=== PATIENT | male | born 1945 | race Caucasian/White ===

== ENCOUNTER 2016-12-14 08:17 | Outpatient (CLI) | payer MEDICARE, BC ==
[~2016-12-14] VITALS: Ht 185.4 cm; Wt 139.1 kg
--- NOTE | ~2016-12-14 | HEMODYNAMI ---
PATIENT:ANNIKA LAMAS MEDICAL RECORD: [id number] : 47 LOCATION:[facility] ADMISSION DATE: 12/14/16 Generatedon:12/14/201611:14 Patient name: ANNIKA LAMAS Patient #: [id number] SSN: DO B: 1945 Date of study: 12/14/2016 Page: Of Hemodynamic Procedure Report Patient Data Patient Demographics Procedure consent was obtained First Name: ANNIKA Gender: Male Last Name: CYDNEY : 1945 Patient #: [id number] Age: 71 year(s) Race: Unknown Additional ID: [id number] Contact details Address: [address] [place] [address] [place] State: [place] City: [facility] [place] Zip code: [address] Past Medical History Performed procedures and imaging results Date Procedure Procedure Results Comments 12/05/2016 Stress testing Positive->Intermediate Fixed with SPECT MPI risk Anterior Allergies: No known allergies Admission Admission Data Admission Date: 12/14/2016 Admission Time: 8:17 Insurance Payor: Private health insurance, Medicare Height (in.): 72 BSA: 2.55 (m2) Height (cm.): 182.88 BMI: 41.5 (kg/m2) Weight (lbs.): 306 Weight (kg.): 138.8 Lab Results Lab Result Date: 12/14/2016 Lab Result Time: 9:30 Biochemistry Name Units Result Min Max BUN mg/dl 15 --(--*-)-- 7 18 Creatinine mg/dl 0.9 --(-*--)-- 0.6 1.3 CBC Name Units Result Min Max Hematocrit % 39.6 -*(----)-- 42 54 Hemoglobin g/dl 12.9 -*(----)-- 13.5 17.5 Procedure Procedure Types Cath Procedure Diagnostic Procedure LHC LH w/Coronaries PCI Procedure Coronary Stent Initial x2 Miscellaneous Procedures Moderate Sedation up to 30 minutes Procedure Description Procedure Date Procedure Date: 12/14/2016 Procedure Start Time: 10:38 Procedure End Time: 11:03 Procedure Staff Name Function Christy Vasquez RT Scrub Antonino Reis MD Performing Physician Jimena Vaughn RN Nurse Refugio Conley RT Monitor Procedure Data Cath Procedure Fluoroscopy Diagnostic fluoroscopy Total fluoroscopy Time: 8.7 time: 8.7 min min Diagnostic fluoroscopy Total fluoroscopy dose: dose: 1507 mGy 1507 mGy Contrast Material Contrast Material Type Amount (ml) Isovue 300 134 Entry Location Entry Primary Successful Side Size Upsize Upsize Entry Closure Sullivan ccessful Closure Location (Fr) 1 (Fr) 2 (Fr) Remarks Device Remarks Radial Right 6 Fr Mechanical artery Short Compression Femoral Right 6 Fr Exoseal artery Short Estimated blood loss: 10 ml Diagnostic catheters Device Type Used For End Catheter Placement Cordis RBL-A catheter (NO Procedure CHARGE) Procedure Complications No complications Procedure Medications Medication Administration Route Dosage Oxygen NC 2 l/min Heparin Flush Bag added to field 2 bags (1000units/500ml NS) Lidocaine 2% added to field 20 Radial Cocktail added to field 1 syringe (Verapomil 2mg/Nitro 400mcg/Heparin 1500units) Versed I.V. 1 mg Fentanyl I.V. 50 mcg Versed I.V. 1 mg Fentanyl I.V. 50 mcg Radial Cocktail I.A. 1 syringe (Verapomil 2mg/Nitro 400mcg/Heparin 1500units) Versed I.V. 1 mg Fentanyl I.V. 50 mcg Versed I.V. 1 mg Fentanyl I.V. 50 mcg Versed I.V. 1 mg Fentanyl I.V. 50 mcg Heparin Bolus I.V. 4000 units Integrilin (Bolus I.V. 11.3 ml 2mg/ml) Plavix P.O. 600 mg Hemodynamics Rest BSA: 2.55 (m2) HGB: 12.9 (g/dl) O2 Consumption: Estimated: 290.02 (ml/min) O2 Co nsumption indexed: Estimated:113.73 (ml/min/m) Heart Rate: 65 (bpm) Snapshots Pre Cath Intra NCS Post Cath Vital Signs Time Heart Resp SPO2 etCO2 [id number] NIBP (mmHg) Rhythm Pain Sedation Rate (ipm) (%) (mmHg) (mmHg) Status Level (bpm) 10:19:07 66 19 99 0 0 146/76(129) NSR 0 (11) 10(A) , No pain 10:23:23 69 20 100 0 0 146/85(119) NSR 0 (11) 10(A) , No pain 10:27:39 66 18 100 0 0 137/78(114) NSR 0 (11) 10(A) , No pain 10:31:55 66 16 96 0 0 127/76(107) NSR 0 (11) 10(A) , No pain 10:36:07 69 16 96 0 0 143/78(109) NSR 0 (11) 10(A) , No pain 10:40:19 81 24 96 0 0 121/71(112) NSR 0 (11) 10(A) , No pain 10:44:23 77 25 96 0 0 121/79(104) NSR 0 (11) 10(A) , No pain 10:48:31 78 15 96 0 0 129/68(102) NSR 0 (11) 9(A) , No pain 10:52:41 74 15 96 0 0 131/72(95) NSR 0 (11) 9(A) , No pain 10:56:57 77 18 96 0 0 129/70(97) NSR 0 (11) 9(A) , No pain 11:00:58 80 22 98 0 0 123/70(85) NSR 0 (11) 10(A) , No pain Medications Time Medication Route Dose Verified Delivered Reason Note s Effectiveness by by 10:18:10 Oxygen NC 2 l/min Antonino Jimena Per physician Smiley Vaughn RN 10:18:18 Heparin Flush added 2 bags Antonino Muñiz used for Bag to Smiley Reis MD procedure (1000units/500ml field NS) 10:18:26 Lidocaine 2% added 20ml Antonino Muñiz used for to vial Smiley Reis MD procedure field 10:18:32 Radial Cocktail added 1 Antonino Muñiz used for (Verapomil to syringe Smiley Reis MD procedure 2mg/Nitro field 400mcg/Hepari 10:35:22 Versed I.V. 1 mg Antonino Jimena for sedation Smiley Vaughn RN 10:35:28 Fentanyl I.V. 50 mcg Antonino Jimena for sedation Smiley Vaughn RN 10:37:13 Versed I.V. 1 mg Antonino Jimena for sedation Smiley Vaughn RN 10:37:15 Fentanyl I.V. 50 mcg Antonino Jimena for sedation Smiley Vaughn RN 10:39:17 Radial Cocktail I.A. 1 Antonino Antonino for (Verapomil syringe Smiley Reis MD vasodilation 2mg/Nitro 400mcg/Hepari 10:39:26 Versed I.V. 1 mg Antonino Jimena for sedation Smiley Vaughn RN 10:39:31 Fentanyl I.V. 50 mcg Antonino Jimena for sedation Smiley Vaughn RN 10:41:10 Versed I.V. 1 mg Antonino Jimena for sedation Smiley Vaughn RN 10:41:18 Fentanyl I.V. 50 mcg Antonino Jimena for sedation Smiley Vaughn RN 10:43:21 Versed I.V. 1 mg Antonino Jimena for sedation Smiley Vaughn RN 10:43:27 Fentanyl I.V. 50 mcg Antonino Jimena for sedation Smiley Vaughn RN 10:48:03 Heparin Bolus I.V. 4000 Antonino Jimena for dose units Smiley Vaughn RN anticoagulation verified with dr reis 10:51:49 Integrilin I.V. 11.3 ml nAtonino Jimena for wast ed (Bolus 2mg/ml) Smiley Vaughn RN antiplatelet 8.7 mL therapy 11:00:10 Plavix P.O. 600 mg Antonino Jimena for Smiley Vaughn RN antiplatelet therapy Procedure Log Time Note 10:09:30 Diagnostic Cath Status : Elective 10:09:51 Refugio Conley RT(R) sent for patient. Start room use. 10:09:52 Time tracking: Regular hours 10:09:56 Plan of Care:Hemodynamics will remain stable., Cardiac rhythm will remain stable., Comfort level will be maintained., Respiratory function will remain adequate., Patient/ family verbilizes understanding of procedure., Procedure tolerated without complication., Recovers from procedure without complications.. 10:17:57 Vital chart was started 10:18:10 Oxygen 2 l/min NC was administered by Jimena Vaughn RN; Per physician; 10:18:18 Heparin Flush Bag (1000units/500ml NS) 2 bags added to field was administered by Antonino Reis MD; used for procedure; 10:18:26 Lidocaine 2% 20ml vial added to field was administered by Antonino Reis MD; used for procedure; 10:18:32 Radial Cocktail (Verapomil 2mg/Nitro 400mcg/Heparin 1500units) 1 syringe added to field was administered by Antonino Reis MD; used for procedure; 10:27:27 Patient received from Pre/Post Procedure Room to CCL 1 Alert and oriented. Tansferred to table in Supine position. 10:27:28 Correct patient and procedure confirmed by team. 10:27:28 Warm blankets applied, and nicolasa hugger turned on for patient comfort. 10:27:30 Signed procedure consent form obtained from patient. 10:27:31 ECG and BP/O2 sat monitors applied to patient. 10:27:32 Baseline sample Acquired. 10:27:36 Rhythm: sinus rhythm 10:27:48 H&P Date Dictated: 11/22/2016 Within 30 days and on chart., H&P Addendum completed by physician on day of procedure. (MUST COMPLETE FOR ALL OUTPATIENTS). 10:28:47 Pre-procedure instructions explained to patient. 10:28:48 Pre-op teaching completed and patient verbalized understanding. 10:28:50 Family in waiting room. 10:29:31 Patient allergic to No known allergies 10:29:33 Is the patient allergic to Iodine/contrast media? No. 10:29:35 Is patient on blood thinner?No 10:29:38 Patient diabetic? Yes. 10:29:41 If diabetic: On Metformin? Yes 10:29:46 If on Metformin: Last Dose? 12/11/2016 10:29:50 Snore? Yes 10:29:50 Previous problem with sedation/anesthesia? No ? 10:29:51 Sleep apnea? No 10:29:52 Deviated septum? No 10:29:53 Opens mouth fully? Yes 10:29:54 Sticks out tongue? Yes 10:29:55 Airway obstruction? No ? 10:29:57 Dentures? No ? 10:29:59 Modified Albert's test Ulnar < 7 seconds 10:30:01 Patient pain scale 0/10 ?. 10:30:11 IV patent on arrival in left hand with 0.9% NaCl at KVO. 10:31:20 Lab Result : Hemoglobin 12.9 g/dl 10:31:20 Lab Result : Hematocrit 39.6 % 10:31:20 Lab Result : BUN 15 mg/dl 10:: Lab Result : Creatinine 0.9 mg/dl 10:31:23 Lab results completed and on chart. 10:31:25 Right Radial & Right Groin area was prepped with chlora-prep and draped in sterile fashion 10:: Sharps counted by scrub and verified by R.N. 10:: Alarms reviewed by R. N. 10:31:30 Use device set Radial Dx 10:31:31 MBrace Wrist Support opened to sterile field. 10:31:32 Tegaderm 4 x 4 opened to sterile field. 10:31:33 Acist Hand Control opened to sterile field. 10:31:33 Acist Manifold opened to sterile field. 10:31:34 Medline Cath Pack opened to sterile field. 10:31:34 Acist Syringe opened to sterile field. 10:31:35 Terumo 6Fr Slender Glidesheath opened to sterile field. 10:31:35 Bag Decanter opened to sterile field. 10:31:36 St Grant 260cm J .035 wire opened to sterile field. 10:31:48 Patient Height : 72 cm 10:31:54 Patient Weight : 306 kg 10:31:54 Insurance Payor : Private health insurance, Medicare 10:34:39 Zero performed for pressure channel P1 10:35:01 Physician arrived 10:35:02 Final Timeout: patient, procedure, and site verified with staff and physician. All members of the team are in agreement. 10:35:02 --------ALL STOP TIME OUT------ 10:35:07 Right Radial & Right Groin site verified by team. 10:35:22 Versed 1 mg I.V. was administered by Jimena Vaughn RN; for sedation; 10:35:28 Fentanyl 50 mcg I.V. was administered by Jimena Vaughn RN; for sedation; 10:35:52 Physical assessment completed. ASA score P 2 - A patient with mild systemic disease as per Antonino Reis MD. 10:35:55 Sedation plan: IV Moderate Sedation Versed, Fentanyl 10:37:13 Versed 1 mg I.V. was administered by Jimena Vaughn RN; for sedation; 10:37:15 Fentanyl 50 mcg I.V. was administered by Jimena Vaughn RN; for sedation; 10:38:07 Full Disclosure recording started 10:38:07 Procedure started. 10:38:13 Local anesthetic to right radial artery with Lidocaine 2% by Antonino Reis MD.INITIAL ACCESS ONLY 10:38:40 A 6 Fr Short sheath was inserted into the Right Radial artery 10:39:05 A Polyplex RBL-A catheter (NO CHARGE) was advanced over the wire and used for Procedure. 10:39:17 Radial Cocktail (Verapomil 2mg/Nitro 400mcg/Heparin 1500units) 1 syringe I.A. was administered by Antonino Reis MD; for vasodilation; 10:39:26 Versed 1 mg I.V. was administered by Jimena Vaughn RN; for sedation; 10:39:31 Fentanyl 50 mcg I.V. was administered by Jimena Vaughn RN; for sedation; 10:40:44 LV gram done using ZAPIEN 10:40:46 Injector settings: Ml/sec: 5, Volume: 15, 10:40:57 EF : 60 % 10:41:10 Versed 1 mg I.V. was administered by Jimena Vaughn RN; for sedation; 10:41:13 Catheter exchanged over wire. 10:41:18 Fentanyl 50 mcg I.V. was administered by Jimena Vaughn RN; for sedation; 10:43:12 Medtronic Launcher 6Fr AR 2.0 guide catheter opened to sterile field. 10:43:13 Medtronic Launcher 6Fr EBU 3.5 guide catheter opened to sterile field. 10:43:21 Versed 1 mg I.V. was administered by Jimena Vaughn RN; for sedation; 10:43:22 Terumo 6Fr [place] Sheath opened to sterile field. 10:43:27 Fentanyl 50 mcg I.V. was administered by Jimena Vaughn RN; for sedation; 10:44:00 unable to cannulate vessles through radial approach, moving to femoral. 10:44:07 Local anesthetic to right femoral artery with Lidocaine 2% by Antonino Reis MD.ADDITIONAL ACCESS 10:44:39 A 6 Fr Short sheath was inserted into the Right Femoral artery 10:45:38 6 Fr ebu 3.5 guide catheter was inserted over the wire 10:46:12 LCA angiography performed. 10:46:51 Fletcher Whisper J 300cm 0.014 guide wire opened to sterile field. 10:46:51 Trina BasixCompak Inflation Kit opened to sterile field. 10:48:03 Heparin Bolus 4000 units I.V. was administered by Jimena Vaughn RN; for anticoagulation; dose verified with dr reis 10:49:08 whisper wire advanced. 10:49:36 Wire advanced across lesion. 10:49:38 Inflation Number: 1 A Medtronic Resolute 3.5 X 18 stent was prepped and advanced across the Mid LAD. The stent was deployed at 21 DEISY for 0:10 (min:sec). 10:49:44 Stent catheter was removed intact over wire. 10:49:50 Wire removed. 10:50:14 Guide catheter removed. 10:50:24 6 Fr AR 2 guide catheter was inserted over the wire 10:51:04 RCA angiography performed. 10:51:49 Integrilin (Bolus 2mg/ml) 11.3 ml I.V. was administered by Jimena Vaughn RN; for antiplatelet therapy; wasted 8.7 mL 10:53:23 whisper wire advanced. 10:54:28 Wire advanced across lesion. 10:54:50 Inflation Number: 1 A Medtronic Resolute 3.5 X 18 stent was prepped and advanced across the Mid RCA. The stent was deployed at 13 DEISY for 0:10 (min:sec). 10:55:11 Inflation number: 2 The stent balloon was then re-inflated across the Mid RCA to 19 DEISY for 0:10 (min:sec). 10:55:42 Stent catheter was removed intact over wire. 10:57:25 Inflation Number: 1 A Medtronic Resolute 3.5 X 15 stent was prepped and advanced across the Prox RCA. The stent was deployed at 17 DEISY for 0:10 (min:sec). 10:58:37 Stent catheter was removed intact over wire. 10:58:38 Guide catheter removed. 10:58:38 Wire removed. 10:58:52 Cordis 6Fr Exoseal opened to sterile field. 10:59:04 Sheath removed intact; hemostasis achieved with Exoseal to the Right Femoral artery. 10:59:05 Procedure ended.(Physican Out) 11:00:10 Plavix 600 mg P.O. was administered by Jimena Vaughn RN; for antiplatelet therapy; 11:00:35 Terumo TR Band Large opened to sterile field. 11:00:45 Sheath removed intact; hemostasis achieved with Mechanical Compression to the Right Radial artery. 11:00:50 Fluoroscopy time 08.70 minutes. 11:00:54 Fluoroscopy dose: 1507 mGy 11:00:54 Flurop Dose total: 1507 11:01:00 Contrast amount:Isovue 300 134ml. 11:01:01 Sharps counted by scrub and verified by R.N. 11:01:05 TR band inflated with 12cc of air. 11:01:06 Insertion/operative site no bleeding no hematoma. 11:01:08 Post-op/insertion site Right Femoral artery dressed using a 4 x 4 and Tegaderm. 11:01:12 Post right femoral artery:stable, soft, clean and dry 11:01:14 Post Procedure Pulses reassessed and unchanged 11:01:16 Post-procedure physical assessment completed. ASA score P 2 - A patient with mild systemic disease as per Antonino Reis MD. 11:01:19 Post procedure rhythm: unchanged. 11:01:22 Estimated blood loss: 10 ml 11:01:24 Patient needs reinforcement of post procedure teaching. 11:01:24 Post procedure instruction explained to patient.Patient verbalizes understanding. 11:02:06 Procedure type changed to Cath procedure, Diagnostic procedure, LHC, LHC w/Coronaries, PCI procedure, Coronary Stent Initial x2, Miscellaneous Procedures, Moderate Sedation up to 30 minutes 11::41 Procedure and supply charges have been captured, reviewed, submitted and are correct. 11::45 Procedure Complication : No complications 11:03:26 See physician's report for complete and final results. 11:03:26 Vital chart was stopped 11::28 Report given to Pre/Post Procedure Room. 11:03:30 Patient transfered to Pre/Post Procedure Room with Stretcher. 11::32 Full Disclosure recording stopped ::32 Procedure ended. 11:03:41 ACC-PCI Only Patient was given prescriptions, or instructed by Antonino Reis MD to start/continue the following medications upon discharge: Plavix 11::43 End room use (Document Last) 11:09:59 St Grant Femstop Arch Gold opened to sterile field. 11:14:06 Femstop placed over the right femoral artery at 160 mmHg. Hemostasis achieved. Intervention Summary Intervention Notes Time ActionType Lesion and Equipment Action# Pressure Duration Attributes Used 10:49:38 Place stent Mid LAD Medtronic 1 21 00:10 Resolute 3.5 X 18 stent 10:54:50 Place stent Mid RCA Medtronic 1 13 00:10 Resolute 3.5 X 18 stent 10:55:11 Reinflate Mid RCA Medtronic 2 19 00:10 stent Resolute balloon 3.5 X 18 stent 10:57:25 Place stent Prox RCA Medtronic 1 17 00:10 Resolute 3.5 X 15 stent Device Usage Item Name Manufacture Quantity Catalog Hospital Part Current Minimal Lot# / Number Charge Number Stock Stock Serial# Code [facility] Advanced 1 140-0250-00 264498 96107 817784 5 Wrist Vascular Support Dynamics Tegaderm 4 3M 1 [id number] 140127 885105 051517 5 x 4 Acist Acist 1 24557 852901 041867 042720 5 Manifold Medical Systems Inc Acist Hand Acist 1 61884 457419 147171 040461 5 Control Medical Systems Inc Acist Acist 1 41723 467720 371299 715305 20 Syringe Medical Systems Inc Medline Cardinal 1 [id number] 914906 21581 063117 5 Cath Pack Health Bag Microtek 1 2002S 228303 53243 258271 5 DecFanChatter Medical Inc. Terumo 6Fr Terumo 1 [id number] 594798 456423 756423 [address] St Grant 1 428653 995398 262287 972907 30 260cm J .035 wire Cordis Cardinal 1 [id number] 954671 434931 5 RBL-A Health catheter (NO CHARGE) Medtronic Medtronic 1 [id number] 255425 95658 162042 1 Launcher 6Fr AR 2.0 guide catheter Medtronic Medtronic 1 [id number] 216025 25363 388070 3 Launcher 6Fr EBU 3.5 guide catheter Terumo 6Fr Terumo 1 [id number] 106161 255533 361768 40 [place] Sheath Merit Merit 1 [id number] 094380 470617 550674 15 BasixCompak Medical Inflation Kit Fletcher Fletcher 1 [id number] 347616 499898 251898 5 Whisper J Vascular 300cm 0.014 guide wire Medtronic Medtronic 2 [id number] 279108 289050 1 [id number] Resolute [id number] 3.5 X 18 stent Medtronic Medtronic 1 [id number] 396122 942656 5 [id number] Resolute 3.5 X 15 stent Cordis 6Fr Cardinal 1 [id number] 510666 119875 476533 10 HighlightCam Shoutfitumo 1 [id number] 353420 315769 887[address] Grant 1 [id number] 649437 027238 680458 5 Femstop Arch Gold Signature Audit [place] Stage Time Signature Unsigned Intra-Procedure 12/14/2016 Rfeugio Conley 11:14:19 AM RT(R) Signatures Monitor : Refugio Conley RT Signature : Date : Time : [facility] [address] [address]
[2016-12-14] MEDS ORDERED: FLOMAX0.4 MG PO (08:53)
[2016-12-14] MEDS ORDERED: OMEPRAZOLE40 MG PO (08:54)
[2016-12-14] MEDS ORDERED: GLUCOPHAGE1000 MG PO (08:54)
[2016-12-14] MEDS ORDERED: LOTREL 10/20 CA1 CAP PO (08:54)
[2016-12-14] MEDS ORDERED: PROSCAR5 MG PO (08:55)
[2016-12-14] MEDS ORDERED: ZOCOR40 MG PO (08:55)
[2016-12-14] MEDS ORDERED: GLYBURIDE5 M1 PO (08:56)
[2016-12-14] MEDS ORDERED: RESTORIL15 MG PO (08:56)
[2016-12-14 09:04] VITALS: BP 140/79; Ht 185.4 cm; Wt 139.1 kg
[2016-12-14 09:44] LABS: BASOPHILS 0.2 % (0.0-2.0); EOSINOPHILS 3.4 % (0-7); HEMATOCRIT 39.6 % (42.0-54.0); HEMOGLOBIN 12.9 g/dL (13.5-17.5); IMMATURE GRANULOCYTES 0.4 % (0-5); LYMPHOCYTES 22.6 % (15-50); MCH 27.7 pg (26.0-34.0); MCHC 32.6 g/dL (31.0-37.0); MEAN PLATELET VOLUME 8.8 fL (7.4-10.4); MONOCYTES 6.7 % (2-11); NEUTROPHILS 66.7 % (40-80); PLATELET COUNT 178 10x3/uL (130-400); RBC 4.66 10x6/uL (4.20-6.10); RDW 13.7 % (11.5-14.5); WBC 8.5 10x3/uL (4.8-10.8)
[2016-12-14 10:03] LABS: CALC OSMOLALITY 284 mosm/kg (275-300); CALCIUM 8.5 mg/dL (8.5-10.1); CARBON DIOXIDE 25.6 mmol/L (21.0-32.0); CHLORIDE - SERUM 105 mmol/L (98-107); CREATININE - SERUM 0.9 mg/dL (0.6-1.3); GLUCOSE 187 mg/dL (74-106); POTASSIUM - SERUM 4.1 mmol/L (3.5-5.1); SODIUM 140 mmol/L (136-145); UREA NITROGEN 15 mg/dL (7-18); eGFR NON AFRICAN AMERICAN 89 mL/min (90-120)
--- NOTE | 2016-12-14 11:30 | NUR ---
VSS WITH CHEST PAIN DENIED.TR BAND TO R/WRIST CDI 6 FR EXOSEAL R/GROIN CDI NO BLEEDING NO HEMATOMA NOTED. INSTRUCTED PATIENT TO KEEP HEAD FLAT ON PILLOW WITH RLE STRAIGHT 1200 NO DISTRESS NOTED VSS WITH NO DISTRESS NOTED 6 FR EXOSEAL R/GROIN CDI NO BLEEDING NO HEMATOMA NOTED.
[2016-12-14] MEDS ORDERED: PLAVIX75 MG PO (11:47)
--- NOTE | 2016-12-14 12:30 | NUR ---
1230 PATIENT RESTING QUIETLY WITH EYES CLOSED NO DISTRESS. TR BAND TO R/WRIST CDI 6 FR EXOSEAL R/GROIN CDI NO BLEEDING NO HEMATOMA NOTED. INSTRUCTED PATIENT TO KEEP HEAD FLAT ON PILLOW WITH RLE STRAIGTH 1300 SANDWICH AND SODA TO BEDSIDE WITH ASSISTING NO DISTRESS 1330 4 CC AIR REMOVED FROM TR BAND WITH NO BLEEDING NOTED
--- NOTE | 2016-12-20 14:38 | OP ---
PATIENT NAME: ANNIKA LAMAS MEDICAL RECORD: [id number] :47 LOCATION:D.[facility] ADMISSION DATE: SURGEON: BHUMI NICOLAS MD DATE OF OPERATION: 12/14/2016 PROCEDURES: 1. PTCA stent, LAD. 2. PTCA stent, RCA. 3. Left heart catheterization. 4. Selective coronary angiography. 5. Left ventriculogram. INDICATIONS: Angina and coronary artery disease. PROCEDURE IN DETAIL: After informed consent was obtained and after detailed explanation of risks, benefits as well as alternative therapies, the patient elected to proceed with angiogram and angioplasty. The right femoral area was prepped and draped in normal sterile fashion. The right femoral artery was cannulated via modified Seldinger technique with placement of 6-Albanian sheath. All catheters exchanged through this sheath. FINDINGS: Left ventriculogram was performed in standard 30-degree ZAPIEN view, reveals good cardiac wall motion throughout all segments. Overall ejection fraction is 60%. SELECTIVE CORONARY ANGIOGRAPHY: 1. Left main is with no significant angiographic disease. 2. Left anterior descending has a 90% stenosis in the mid vessel. 3. Left circumflex has moderate irregularities, but no flow-limiting stenosis. 4. Right coronary has 75%-80% stenosis times 2 in the mid vessel. PTCA STENT OF THE LAD AND RCA: The LAD was addressed with a 3.5 x 18 mm Resolute. The RCA with a 3.5 x 18 and a 3.5 x 15, both Resolute stents. Result was 0% residual throughout. OVERALL IMPRESSION: Successful percutaneous transluminal coronary angioplasty stent of the left anterior descending and right coronary artery going from 90% and 80% initial stenosis to 0% residual stenosis. TRANSINT:[id number] Voice Confirmation ID: [id number] DOCUMENT ID: [id number] BHUMI NICOLAS MD at 1438 CC: [id number] DICTATION DATE: 12/14/16 1102 REWEAVER: 12/14/16 1119 DEP CLI 12/14/16 [place] [id number]
== END 2016-12-14 14:30 | disposition home or self-care (01) ==
LOC: D.CATH 08:17
PROVIDERS: Internal Medicine Interventional Cardiology
DX: I25.119 Atherosclerotic heart disease of native coronary artery with unspecified angina pectoris (principal)
CPT/HCPCS: 93458; C9600 ×2

== ENCOUNTER 2018-06-17 10:12 | Emergency (ER) | payer MEDICARE, BC ==
[~2018-06-17] VITALS: Ht 185.4 cm; Wt 136.4 kg
[~2018-06-17 10:12] MED LIST: FLOMAX0.4 MG PO; GLUCOPHAGE1000 MG PO; GLYBURIDE5 M1 PO; LOTREL 10/20 CA1 CAP PO; OMEPRAZOLE40 MG PO; PLAVIX75 MG PO; PROSCAR5 MG PO; RESTORIL15 MG PO; ZOCOR40 MG PO
[2018-06-17 10:18] VITALS: Ht 185.4 cm; Wt 136.4 kg
[2018-06-17] MEDS ORDERED: TRAZODONE HCL100 MG PO (10:21)
[2018-06-17] MEDS ORDERED: FENOPROFEN CAL600 MG PO (10:21)
[2018-06-17 10:52] LABS: APPEARANCE CLEAR (CLEAR); COLOR YELLOW (YELLOW); NITRITE NEGATIVE (NEGATIVE)
[2018-06-17 10:53] LABS: BILIRUBIN NEGATIVE (NEGATIVE); GLUCOSE 50 mg/dL (NEGATIVE); KETONE NEGATIVE (NEGATIVE); PROTEIN NEGATIVE (NEGATIVE); UROBILINOGEN NORMAL (NORMAL)
[2018-06-17] MEDS ORDERED: TORADOL10 MG PO (11:31)
[2018-06-17 12:27] VITALS: BP 154/84
== END 2018-06-17 12:27 | disposition home or self-care (01) ==
LOC: D.ER 10:12
PROVIDERS: Emergency Medicine
DX: M54.16 Radiculopathy, lumbar region (principal); E11.9 Type 2 diabetes mellitus without complications; I10 Essential (primary) hypertension

== ENCOUNTER → 2018-12-24 08:42 | Outpatient (CLI) | payer MEDICARE, BC ==
[2018-06-17 10:18] VITALS: BMI 39.6
[~2018-12-24 08:42] MED LIST changes: +FENOPROFEN CAL600 MG PO; +TORADOL10 MG PO; +TRAZODONE HCL100 MG PO
== END | disposition home or self-care (01) ==
LOC: D.RAD 08:42
PROVIDERS: ATTEND Family Medicine
DX: R13.10 Dysphagia, unspecified (principal)

== ENCOUNTER 2019-10-15 06:08 | Emergency (ER) | payer MEDICARE, BC ==
[~2019-10-15] VITALS: Ht 185.4 cm; Wt 135.9 kg
[2019-10-15 06:23] VITALS: Ht 185.4 cm; Wt 135.9 kg
[2019-10-15 06:45] LABS: BASOPHILS 0.3 % (0-2); EOSINOPHILS 4.1 % (0-7); HEMATOCRIT 39.8 % (42.0-54.0); IMMATURE GRANULOCYTES 0.3 % (0-5); LYMPHOCYTES 17.2 % (15-50); MCH 28.4 pg (26.0-34.0); MCHC 32.7 g/dL (31.0-37.0); MCV 87.1 fL (80.0-100.0); MEAN PLATELET VOLUME 8.6 fL (7.4-10.4); MONOCYTES 6.1 % (2-11); PLATELET COUNT 192 10x3/uL (130-400); RBC 4.57 10x6/uL (4.20-6.10); RDW 13.2 % (11.5-14.5); WBC 11.7 10x3/uL (4.8-10.8)
[2019-10-15 06:59] LABS: ANION GAP 12.3 mmol/L (8-16); CALCIUM 8.7 mg/dL (8.5-10.1); CARBON DIOXIDE 29.6 mmol/L (21.0-32.0); CREATININE - SERUM 1.1 mg/dL (0.6-1.3); POTASSIUM - SERUM 3.9 mmol/L (3.5-5.1)
[2019-10-15 07:07] LABS: ALBUMIN 3.6 g/dL (3.4-5.0); BILIRUBIN - TOTAL 0.5 mg/dL (0.2-1.3); PROTEIN - SERUM 7.1 g/dL (6.4-8.2)
[2019-10-15] MEDS ORDERED: ULTRAM50 MG PO (07:42)
[2019-10-15] MEDS ORDERED: PERCOCET 5-3251 TAB PO (07:48)
[2019-10-15 08:21] VITALS: BP 156/71
== END 2019-10-15 08:22 | disposition home or self-care (01) ==
LOC: D.ER 06:08
PROVIDERS: Emergency Medicine
DX: E11.8 Type 2 diabetes mellitus with unspecified complications (principal); Z79.84 Long term (current) use of oral hypoglycemic drugs; N20.1 Calculus of ureter; I10 Essential (primary) hypertension; Z95.5 Presence of coronary angioplasty implant and graft

== ENCOUNTER 2019-10-18 18:37 | Observation (INO) | payer MEDICARE, BC ==
[~2019-10-18] VITALS: Ht 185.4 cm; Wt 130.9 kg
[~2019-10-18 18:37] MED LIST changes: +PERCOCET 5-3251 TAB PO; +ULTRAM50 MG PO
[2019-10-18 19:03] LABS: BASOPHILS 0.2 % (0-2); EOSINOPHILS 0.7 % (0-7); HEMATOCRIT 36.4 % (42.0-54.0); HEMOGLOBIN 12.2 g/dL (13.5-17.5); IMMATURE GRANULOCYTES 0.4 % (0-5); LYMPHOCYTES 10.9 % (15-50); MCHC 33.5 g/dL (31.0-37.0); MCV 86.7 fL (80.0-100.0); MEAN PLATELET VOLUME 8.5 fL (7.4-10.4); NEUTROPHILS 78.8 % (40-80); PLATELET COUNT 183 10x3/uL (130-400); RDW 13.2 % (11.5-14.5); WBC 13.3 10x3/uL (4.8-10.8)
--- NOTE | 2019-10-18 19:10 | NUR ---
REPORT GIVEN TO IVY REBOLLEDO IN SBAR FORMAT UTILIZING THE HANDOFF COMMUNICATION TOOL.
[2019-10-18 19:20] LABS: ANION GAP 14.8 mmol/L (8-16); CALCIUM 8.3 mg/dL (8.5-10.1); CARBON DIOXIDE 27.2 mmol/L (21.0-32.0); CREATININE - SERUM 1.6 mg/dL (0.6-1.3)
[2019-10-18 19:27] LABS: ALBUMIN 3.2 g/dL (3.4-5.0); BILIRUBIN - TOTAL 0.41 mg/dL (0.2-1.3); PROTEIN - SERUM 7.2 g/dL (6.4-8.2)
[2019-10-18 21:26] LABS: APPEARANCE CLEAR (CLEAR); BILIRUBIN NEGATIVE (NEGATIVE); COLOR YELLOW (YELLOW); GLUCOSE NEGATIVE (NEGATIVE); KETONE SMALL mg/dL (NEGATIVE); NITRITE NEGATIVE (NEGATIVE); PROTEIN TRACE mg/dL (NEGATIVE); UROBILINOGEN NORMAL (NORMAL)
[2019-10-18 21:27] LABS: BACTERIA FEW /hpf (NEGATIVE); WHITE CELLS - URINE 0-5 /hpf (NEGATIVE)
[2019-10-18 22:09] VITALS: BP 159/72; Ht 185.4 cm; Wt 130.9 kg
[2019-10-19 04:00] VITALS: BP 159/72
[2019-10-19 05:35] LABS: BASOPHILS 0.3 % (0-2); EOSINOPHILS 2.2 % (0-7); HEMATOCRIT 33.3 % (42.0-54.0); IMMATURE GRANULOCYTES 0.2 % (0-5); LYMPHOCYTES 17.9 % (15-50); MCH 28.6 pg (26.0-34.0); MCV 86.5 fL (80.0-100.0); MEAN PLATELET VOLUME 8.6 fL (7.4-10.4); MONOCYTES 8.4 % (2-11); PLATELET COUNT 176 10x3/uL (130-400); RBC 3.85 10x6/uL (4.20-6.10); RDW 13.2 % (11.5-14.5)
[2019-10-19 06:14] LABS: % SATURATION 12 % (15-55); IRON 28 ug/dl (35-150); TOTAL IRON BIND CAPACITY 227 ug/dl (260-445); UNSAT IRON BIND CAPACITY 199 ug/dl (150-375)
[2019-10-19 06:43] LABS: ANION GAP 14.2 mmol/L (8-16); CALCIUM 7.7 mg/dL (8.5-10.1); CARBON DIOXIDE 26.5 mmol/L (21.0-32.0); MAGNESIUM - SERUM 1.7 mg/dL (1.8-2.4); PHOSPHOROUS 3.7 mg/dL (2.5-4.9); POTASSIUM - SERUM 3.7 mmol/L (3.5-5.1)
[2019-10-19 06:48] LABS: CREATININE - SERUM 1.1 mg/dL (0.6-1.3)
--- NOTE | 2019-10-19 07:46 | NUR ---
PT RESTING IN BED WITH EYES OPEN, ALERT AND ORIENTED, BREATHING EVEN AND UNLABORED NO S/S OF DISTRESS AT THIS TIME. IV LOCATED TO LEFT WRIST RUNNING NS @ 125. DENIES NEEDS AT THIS TIME, WILL CONTINUE TO MONITOR.
[2019-10-19] MEDS ORDERED: CIPRO500 MG PO (09:16)
[2019-10-19] MEDS ORDERED: PERCOCET 5-3251 TAB PO (09:16)
[2019-10-19 10:05] VITALS: BP 163/76
== END 2019-10-19 11:26 | disposition home or self-care (01) ==
LOC: D.ER 18:37 → D.MS 20:57 → OBSVTIME 20:57 → D.MS 10-19 11:26
PROVIDERS: Family Medicine; ADMIT Family Medicine; ATTEND Family Medicine
DX: N20.1 Calculus of ureter (principal); N17.9 Acute kidney failure, unspecified; D72.829 Elevated white blood cell count, unspecified; D50.9 Iron deficiency anemia, unspecified; E11.9 Type 2 diabetes mellitus without complications

== ENCOUNTER → 2021-01-07 09:00 | Outpatient (CLI) | payer MEDICARE, BC ==
[2019-10-18 22:09] VITALS: BMI 38.0
--- NOTE | ~2021-01-07 | EC ---
PATIENT:ANNIKA LAMAS DATE OF SERVICE: 01/07/21 SEX: M MEDICAL RECORD: [id number] DATE OF : [birth year] LOCATION:[facility] AGE OF PATIENT: 75 ADMISSION DATE: 01/07/21 REFERRING PHYSICIAN: INTERPRETING PHYSICIAN: JOHN BANGURA MD ECHOCARDIOGRAM REPORT ECHO CHARGES 4 ECHO COMPLETE Date: 01/07/21 CLINICAL DIAGNOSIS: HEART MURMUR ECHOCARDIOGRAPHIC MEASUREMENTS (adult normal given) AC root (d.<3.7cm) 3.8 cm LV Septum d (<1.2 cm> 1.3 cm Valve Excursion 1.7 cm LV Septum (systole) 1.5 cm Left Atria (s.<4.0cm> 3.9 cm LVPW d(<1.2cm) 1.3 cm RV (d.<2.3cm) 3.9 cm LVPW (sytole) 1.6 cm LV diastole(<5.6CM) 3.9 cm MV E-F(>70mm/sec) cm LV systole 2.4 cm LVOT Diameter 2.2 cm MV exc.(>10mm) 1.4 cm Est.ejection fraction (50-75%) % DOPPLER: LVIT cm/sec A 75.0 cm/sec E 63.0 cm/sec LA cm/sec RVSP 14 mmHg LVOT 112 cm/sec AOP1/2T m/s Asc. Ao 140 cm/sec RVOT 81 cm/sec RA cm/sec PA 96 cm/sec AV Gradient Peak 7.82 mmHg AV Mean 4.50 mmHg AV Area 2.7 cm MV Gradient Peak 4.25 mmHg MV Mean 1.71 mmHg MV Area cm COMMENTS: Graduation Coach: 2 RAHAT HAMPTON Wire Drawing Setter: 3 Dr. Poole TAPE# PACS Pericardial Effusion N DATE OF SERVICE: Adequate 2D, color-flow imaging, spectral Doppler, and M-Mode FINDINGS: Mild LVH. LV internal dimension is normal. Wall motion is normal. EF is greater than or equal to 55%. Aortic valve is tricuspid. No evidence of stenosis by Doppler interrogation. Left atrium is normal. Mitral valve shows no prolapse. Trace MR. Right-sided chambers are grossly normal. Trace TR. TRANSINT:[id number] Voice Confirmation ID: [id number] DOCUMENT ID: [id number] ECHOCARDIOGRAM REPORT [id number] ANNIKA LAMAS GREGORY A MD CC: [id number] DICTATION DATE: 01/08/21 1251 DAYCARE ASSISTANT: 01/08/21 1549 DEP CLI 01/07/21 [place] [id number] [place] [address]
[~2021-01-07 09:00] MED LIST changes: +CIPRO500 MG PO
== END | disposition home or self-care (01) ==
LOC: D.HCCECHO 09:00
PROVIDERS: ATTEND Internal Medicine Cardiovascular Disease
DX: I25.10 Atherosclerotic heart disease of native coronary artery without angina pectoris (principal); R01.1 Cardiac murmur, unspecified

== ENCOUNTER 2021-01-21 11:19 | Day surgery (SDC) | payer MEDICARE, BC ==
[~2021-01-21] VITALS: Ht 182.9 cm; Wt 136.8 kg
--- NOTE | ~2021-01-21 | HEMODYNAMI ---
PATIENT:ANNIKA LAMAS MEDICAL RECORD: [id number] : 47 LOCATION:[facility] ADMISSION DATE: 01/21/21 Generatedon:113:36 Patient name: ANNIKA LAMAS Patient #: [id number] SSN: DO B: 1945 Date of study: 01/21/2021 Page: Of Hemodynamic Procedure Report Patient Data Patient Demographics Procedure consent was obtained First Name: ANNIKA Gender: Male Last Name: CYDNEY : 1945 Patient #: [id number] Age: 75 year(s) Race: Unknown Additional ID: [id number] Contact details Address: [address] [place] [address] [place] State: [place] City: [facility] Zip code: [address] Past Medical History Allergies: No known allergies Admission Admission Data Admission Date: 01/21/2021 Admission Time: 11:19 Lab Results Lab Result Date: 01/21/2021 Lab Result Time: 0:00 Biochemistry Name Units Result Min Max BUN mg/dl 27 --(----)-* 7 18 Creatinine mg/dl 1.2 --(---*)-- 0.6 1.3 eGFR ml/min 63 *-(----)-- 90 120 NONAFRICAN CBC Name Units Result Min Max Hemoglobin g/dl 12.8 -*(----)-- 13.5 17.5 Procedure Procedure Types Cath Procedure Diagnostic Procedure LHC LHC w/Coronaries FFR/IVUS FFR Initial FFR Additional Sedation Charges Moderate Sedation 10-24 minutes PCI Procedure Coronary Stent Coronary Stent Initial Hemochron ACT Test Procedure Description Procedure Date Procedure Date: 01/21/2021 Procedure Start Time: 13:05 Procedure End Time: 13:33 Procedure Staff Name Function Bruce Goode MD Performing Physician Ashley Handy RT Scrub Ailyn Bray RT Monitor Raza Noel RN Nurse Procedure Data Cath Procedure Fluoroscopy Diagnostic fluoroscopy Total fluoroscopy Time: 4 time: 4 min min Diagnostic fluoroscopy Total fluoroscopy dose: dose: 1350 mGy 1350 mGy Contrast Material Contrast Material Type Amount (ml) Isovue 300 106 Entry Location Entry Primary Successful Side Size Upsize Upsize Entry Closure Succes sful Closure Location (Fr) 1 (Fr) 2 (Fr) Remarks Device Remarks Femoral Right 5 Fr 6 Fr artery Short Estimated blood loss: 10 ml Diagnostic catheters Device Type Used For End Catheter Placement MULTIPACK JL 4.0 5Fr Left Coronary catheter Angiography MULTIPACK 3DRC 5Fr Procedure catheter MULTIPACK Pigtail 5 Fr Ventriculography catheter MULTIPACK 3DRC 5Fr Procedure catheter Procedure Complications No complications Procedure Medications Medication Administration Route Dosage 0.9% NaCl I.V. 100 ml/hr Oxygen etCO2 Nasal cannula 2 l/min Heparin Flush Bag added to field 2 bags (1000units/500ml NS) Lidocaine 2% added to field 20 Versed I.V. 2 mg Fentanyl I.V. 100 mcg Versed I.V. 1 mg Heparin Bolus I.V. 5000 units Plavix P.O. 75 mg Hemodynamics Rest HGB: 12.8 (g/dl) Heart Rate: 67 (bpm) Pressure Samples Time Site Value (mmHg) Purpose Heart Use Rate(bpm) 13:14 LV 123/10,14 Snapshot 75 Gradients Valve Time Site Site Mean SEP/DFP Peak To Heart Use 1 2 (mmHg) (sec/min) Peak Rate (mmHg) (bpm) Aortic 13:14 LV AO 75 Snapshots Pre Cath Intra NCS Post Cath Vital Signs Time Heart Resp SPO2 etCO2 NIBP (mmHg) Rhythm Pain Sedation Rate (ipm) (%) (mmHg) Status Level (bpm) 12:53:40 68 24 98 0 156/89(125) NSR 0 (11) 10(A) , No pain 12:57:58 67 21 96 0 148/82(114) NSR 0 (11) 10(A) , No pain 13:02:18 68 19 97 35.9 136/77(104) NSR 0 (11) 10(A) , No pain 13:06:32 72 20 97 35.2 149/81(110) NSR 0 (11) 10(A) , No pain 13:10:52 75 18 95 34.5 144/78(104) NSR 0 (11) 10(A) , No pain 13:15:06 74 20 95 33.7 133/81(107) NSR 0 (11) 10(A) , No pain 13:19:20 75 18 95 34.4 135/77(98) NSR 0 (11) 10(A) , No pain 13:23:32 77 20 96 17.2 134/73(101) NSR 0 (11) 10(A) , No pain 13:27:48 72 23 96 31.4 121/78(101) NSR 0 (11) 10(A) , No pain 13:32:04 77 23 96 32.9 140/87(128) NSR 0 (11) 10(A) , No pain Medications Time Medication Route Dose Verified Delivered Reason Notes Effectiveness by by 12:51:34 0.9% NaCl I.V. 100 Raza Raza Per physician ml/hr Bert Noel RN RN 12:51:43 Oxygen etCO2 2 Raza Raza for low 02 sats Nasal l/min Bert Noel cannula RN RN 12:51:53 Heparin Flush added 2 Raza Raza used for Bag to bags Bert Noel procedure (1000units/500ml RN RN NS) 12:52:04 Lidocaine 2% added 20ml Raza Raza for local to vial Bert Noel anesthetic [facility] RN RN 13:04:26 Versed I.V. 2 mg Raza Raza for sedation Bert Noel RN RN 13:04:34 Fentanyl I.V. 100 Raza Raza for sedation mcg Bert Noel RN RN 13:08:32 Versed I.V. 1 mg Raza Raza for sedation Bert Noel RN RN 13:17:20 Heparin Bolus I.V. 5000 Raza Raza for units Bert Noel anticoagulation RN RN 13:32:32 Plavix P.O. 75 mg Raza Raza for Bert Noel antiplatelet RN RN therapy Procedure Log Time Note 12:10:58 Informed consent obtained and on chart 12:11:31 Procedure Status Elective Heart Cath (OP). 12:11:33 Time tracking: Regular hours (M-F 7:00 - 5:00) 12:11:37 Plan of Care:Hemodynamics will remain stable., Cardiac rhythm will remain stable., Comfort level will be maintained., Respiratory function will remain adequate., Patient/ family verbilizes understanding of procedure., Procedure tolerated without complication., Recovers from procedure without complications.. 12:30:17 Raza Noel RN sent for patient. Start room use. 12:44:26 Patient received from Pre/Post Procedure Room to CCL 2 Alert and oriented. Tansferred to table in Supine position. 12:44:27 Warm blankets applied, and nicolasa hugger turned on for patient comfort. 12:44:27 Correct patient and procedure confirmed by team. 12:44:27 ECG and BP/O2 sat monitors applied to patient. 12:45:10 H&P Date Dictated: 12/29/2020 Within 30 days and on chart., H&P Addendum completed by physician on day of procedure. (MUST COMPLETE FOR ALL OUTPATIENTS). 12:45:16 Patient allergic to No known allergies 12:51:14 Vital chart was started 12:51:15 Baseline sample Acquired. 12:51:17 Rhythm: sinus rhythm 12:51:18 Full Disclosure recording started 12:51:19 Pre-procedure instructions explained to patient. 12:51:19 Pre-op teaching completed and patient verbalized understanding. 12:51:20 Family in patients room. 12:51:22 Patient NPO since Midnight. 12:51:23 Is the patient allergic to Iodine/contrast media? No. 12:51:25 Is patient on blood thinner?Yes 12:51:27 ACC The patient was administered the following blood thiners within the last 24 hours: ACCPlavix 12:51:34 0.9% NaCl 100 ml/hr I.V. was administered by Raza Noel RN; Per physician; Verbal order read back and verified. 12:51:43 Oxygen 2 l/min etCO2 Nasal cannula was administered by Raza Noel RN; for low 02 sats; Verbal order read back and verified. 12:51:53 Heparin Flush Bag (1000units/500ml NS) 2 bags added to field was administered by Raza Noel RN; used for procedure; Verbal order read back and verified. 12:52:04 Lidocaine 2% 20ml vial added to field was administered by Raza Noel RN; for local anesthetic; Verbal order read back and verified. 12:56:25 Patient diabetic? No. 12:56:27 Snore? Yes 12:56:39 IV patent on arrival in left forearm with 0.9% NaCl at O. 13:02:56 Lab Result : BUN 27 mg/dl 13::56 Lab Result : eGFR NONAFRICAN 63 ml/min 13::56 Lab Result : Creatinine 1.2 mg/dl 13::56 Lab Result : Hemoglobin 12.8 g/dl 13:03:01 Lab results completed and on chart. 13:03:40 Stress Test: yes; abnormal inferior 13:03:45 Right groin area was prepped with chlora-prep and draped in sterile fashion 13:03:46 Alarms reviewed by R. N. 13:03:46 Sharps counted by scrub and verified by R.N. 13:03:48 Physician arrived 13:03:48 --------ALL STOP TIME OUT------ 13:03:49 Final Timeout: patient, procedure, and site verified with staff and physician. All members of the team are in agreement. 13:03:51 Right groin site verified by team. 13:03:57 Fire Safety Assessment: A--An alcohol-based skin anteseptic being used preoperatively., C--Open oxygen or nitrous oxide is being used., D--An ESU, laser, or fiber-optic light is being used. 13:04:05 Physical assessment completed. ASA score P 2 - A patient with mild systemic disease as per Bruce Goode MD. 13:04:20 2) 60-89 Mildly reduced kidney function, and other findings (as for stage 1) point to kidney disease. 13:04:26 Versed 2 mg I.V. was administered by Raza Noel RN; for sedation; Verbal order read back and verified. 13:04:34 Fentanyl 100 mcg I.V. was administered by Raza Noel RN; for sedation; Verbal order read back and verified. 13:04:47 Maximum allowable contrast dose (3.7 X eGFR X 0.75)174 ml. 13:04:51 Sedation plan: IV Moderate Sedation Medication:Versed, Fentanyl 13:04:57 Use device set Femoral Dx 13:05:01 Procedure started. 13:05:53 Local anesthetic to right femoral artery with Lidocaine 2% by Bruce Goode MD.INITIAL ACCESS ONLY 13:05:54 ACIST Syringe (63550) opened to sterile field. 13:05:54 Bag Decanter (2002S) opened to sterile field. 13:05:55 Medline Cath Pack ([id number]) opened to sterile field. 13:05:56 ACIST Hand Control (11440) opened to sterile field. 13:05:56 ACIST Manifold (76965) opened to sterile field. 13:05:57 DIAGNOSTIC Multipack 5Fr catheter set (DQ0531) opened to sterile field. 13:05:57 Tegaderm 4 x 4 (1626W) opened to sterile field. 13:05:59 SHEATH 5FR Reading (GYG725) opened to sterile field. 13:05:59 EMERALD Guide Wire (016-743) opened to sterile field. 13:06:19 A 5 Fr sheath was inserted into the Right Femoral artery 13:08:25 A MULTIPACK JL 4.0 5Fr catheter was advanced over the wire and used for Left Coronary Angiography. 13:08:32 Versed 1 mg I.V. was administered by Raza Noel RN; for sedation; Verbal order read back and verified. 13:08:37 Zero performed for pressure channel P1 13:09:17 LCA angiography performed. 13:11:12 Catheter removed. 13:11:20 A MULTIPACK 3DRC 5Fr catheter was advanced over the wire and used for Procedure. 13:11:27 RCA angiography performed. 13:12:21 Catheter removed. 13:12:54 A MULTIPACK Pigtail 5 Fr catheter was advanced over the wire and used for Ventriculography. 13:12:57 LV angiography performed. 13:13:43 LV gram done using ZAPIEN 13:14:21 EF : 55 % 13:14:45 Catheter removed. 13:14:50 Proceeding to intervention. 13:15:30 Sheath upsized to a 6 Fr Short. 13:16:09 GUIDE 6FR EBU 3.75 catheter ([id number]) opened to sterile field. 13:16:20 6 Fr EBU3.75 guide catheter was inserted over the wire 13:17:20 Heparin Bolus 5000 units I.V. was administered by Raza Noel RN; for anticoagulation; Verbal order read back and verified. 13:17:43 [place] OmniWire (92302) opened to sterile field. 13:17:44 INFLATOR Merit BasixCompak (RR2895) opened to sterile field. 13:17:46 SHEATH 6FR Reading (ZRF319) opened to sterile field. 13:18:08 Wire advanced across lesion. 13:22:08 Place stent Inflation Number: 1 A KAREN RX 3.5 x 15 stent ([id number]) was prepped and advanced across the Prox CX 80. The stent was deployed at 14 DEISY for 0:24 (min:sec) 0. 13:22:37 Stent catheter was removed intact over wire. 13:22:58 pCirc lesion measured at 1.00 with IFR 13:23:02 Wire removed. 13:23:05 Guide Catheter removed. 13:24:31 A MULTIPACK 3DRC 5Fr catheter was advanced over the wire and used for Procedure. 13:24:53 Wire advanced across lesion. 13:27:21 mRCA lesion measured at 1.00 with IFR 13:27:25 Wire removed. 13:27:50 Wire removed. 13:27:51 Guide catheter removed. 13:27:58 EXOSEAL 6Fr (EX600) opened to sterile field. 13:28:07 Procedure ended.(Physican Out) 13:28:45 Fluoroscopy time 04.00 minutes. 13:28:51 Fluoroscopy dose: 1350 mGy 13:28:51 Flurop Dose total: 1350 13:28:57 Dose Area Product 17328 mGy/cm. 13:29:07 Contrast amount:Isovue 300 106ml. 13:29:10 Maximum allowable dose exceeded? No. 13:29:12 Insertion/operative site no bleeding no hematoma. 13:29:17 Post right femoral artery:stable 13:29:19 Post Procedure Pulses reassessed and unchanged 13:29:26 Post-procedure physical assessment completed. ASA score P 3 - A patient with severe systemic disease as per Bruce Goode MD. 13:29:33 Post procedure rhythm: unchanged. 13:29:36 Estimated blood loss: 10 ml 13:29:39 Post procedure instruction explained to patient.Patient verbalizes understanding. 13:30:44 Procedure type changed to Cath procedure, Diagnostic procedure, LHC, LHC w/Coronaries, FFR/IVUS, FFR Initial, FFR Additional, Sedation Charges, Moderate Sedation 10-24 minutes, PCI procedure, Coronary Stent, Coronary Stent Initial, Hemochron ACT Test 13:31:23 Procedure and supply charges have been captured, reviewed, submitted and are correct. 13:32:32 Plavix 75 mg P.O. was administered by Raza Noel RN; for antiplatelet therapy; Verbal order read back and verified. 13:32:45 ACT drawn and resulted at 163 seconds. (normal therapeutic range 180-240 seconds). 13:33:14 Procedure Complication : No complications 13:33:17 Vital chart was stopped 13:33:27 [facility] Findings: MVD- PCI performed (see procedure note) 13:33:34 Operative report dictated upon procedure completion. 13:33:35 See physician's report for complete and final results. 13:33:36 Report given to Pre/Post Procedure Room. 13:33:39 Patient transfered to Pre/Post Procedure Room with Stretcher. 13:33:42 Procedure ended. 13:33:42 Full Disclosure recording stopped 13:33:48 End room use (Document Last) 13:34:54 End room use (Document Last) 13:35:32 End room use (Document Last) Intervention Summary Intervention Notes Time ActionType Lesion and Equipment Used Action# Pressure Duration Attributes 13:22:[address] stent Prox CX KAREN RX 3.5 x 1 14 00:24 15 stent ([id number]) Device Usage Item Name Manufacture Quantity Catalog Hospital Part Current [facility] Lot# / Number Charge Number Stock Stock Serial# Code ACIST Syringe Acist 1 52522 108426 026682 546983 20 (80986) Medical Systems Inc Bag Decanter Microtek 1 2001S 614290 72724 291366 5 (2001S) Medical Inc. Medline Cath Medline 1 [id number] 466289 60551 405802 5 Pack ([id number]) ACIST Hand Acist 1 19854 363559 712716 832459 5 Control Medical (62996) Systems Inc ACIST Manifold Acist 1 51205 060719 815329 139869 5 (81498) Medical Systems Inc DIAGNOSTIC Cardinal 1 HX7802 786855 43125 814239 30 Multipack 5Fr Health catheter set (NS0681) Tegaderm 4 x 4 3M 1 1626W 405521 055040 937026 5 (1626W) SHEATH 5FR Terumo 1 MQT610 110435 373230 540843 5 Reading (IMA548) EMERALD Guide Cardinal 1 502-455 068430 898628 672353 5 Wire (260-005) Health MULTIPACK JL Cardinal 1 469626 5 4.0 5Fr Health catheter MULTIPACK 3DRC Cardinal 1 465772 5 5Fr catheter Health MULTIPACK Cardinal 1 389588 5 Pigtail 5 Fr Health catheter GUIDE 6FR EBU Medtronic 1 [id number] 477029 92908 141524 1 3.75 catheter ([id number]) [place] 1 [id number] 054218 49657 9956 5 OmniWire (61030) INFLATOR Merit Merit 1 AO3197 799774 791493 645133 15 BasixCompak Medical (EG5137) SHEATH 6FR Terumo 1 TYO505 143531 806583 709909 40 Reading (ZOK486) KAREN RX 3.5 x Medtronic 1 [id number] 645619 6597321 964190 5 [id number] 15 stent ([id number]) EXOSEAL 6Fr Cardinal 1 EX600 855080 980801 352268 10 (EX600) Health Signature [place]it [place] Stage Time Signature Unsigned Intra-Procedure 01/21/2021 Ailyn Bray 1:34:54 PM RT(R) Intra-Procedure 01/21/2021 Raza 1:35:32 PM Bert HAYNES Intra-Procedure 01/21/2021 Bruce Steen 1:35:59 PM Alvin PONCE Signatures Performing Physician : Signature : Bruce Goode MD Date : Time : Monitor : Ailyn Bray Signature : RT Date : Time : Nurse : Raza Noel Signature : RN Date : Time : [place] [address] [place] [address]
[2021-01-21] MEDS ORDERED: METFORMIN HCL500 M1 PO (11:35)
[2021-01-21] MEDS ORDERED: OMEPRAZOLE40 MG PO (11:36)
[2021-01-21] MEDS ORDERED: GLIPIZIDE10 MG PO (11:37)
[2021-01-21] MEDS ORDERED: PLAVIX75 MG PO (11:38)
[2021-01-21] MEDS ORDERED: ALEVE220 MG PO (11:39)
[2021-01-21 11:47] VITALS: BP 142/73; Ht 182.9 cm; Wt 136.8 kg
[2021-01-21 12:19] LABS: ANION GAP 13.3 mmol/L (8-16); CALCIUM 9.1 mg/dL (8.5-10.1); CARBON DIOXIDE 27.2 mmol/L (21.0-32.0); CHOL - HDL RATIO 3.3 ratio (2.3-4.9); CREATININE - SERUM 1.2 mg/dL (0.6-1.3); LDL-HDL RATIO 1.8 ratio (1.5-3.5); POTASSIUM - SERUM 4.5 mmol/L (3.5-5.1)
[2021-01-21 12:25] LABS: BASOPHILS 0.4 % (0-2); HEMATOCRIT 38.7 % (42.0-54.0); HEMOGLOBIN 12.8 g/dL (13.5-17.5); IMMATURE GRANULOCYTES 0.4 % (0-5); LYMPHOCYTE ABS# 1.81 10x3/uL (1.32-3.57); LYMPHOCYTES 18.7 % (15-50); MCHC 33.1 g/dL (31.0-37.0); MCV 87.8 fL (80.0-100.0); MEAN PLATELET VOLUME 9.2 fL (7.4-10.4); MONOCYTES 6.5 % (2-11); NEUTROPHIL ABS# 6.98 10x3/uL (1.78-5.38); PLATELET COUNT 198 10x3/uL (130-400); RBC 4.41 10x6/uL (4.20-6.10); RDW 13.2 % (11.5-14.5); WBC 9.7 10x3/uL (4.8-10.8)
--- NOTE | 2021-01-21 13:46 | NUR ---
ARRIVES TO ROOM 5 VIA STRETCHER S/P HEART CATH. SEE LITHOGRAPHIC GENERAL WORKER. CALL LIGHT WITHIN REACH. SPOUSE AT BEDSIDE, DR VILLA IN TO SEE PT SPOUSE PRIOR TO PT ARRIVAL TO ROOM , DENIES PAIN OR NEEDS
--- NOTE | 2021-01-21 14:05 | NUR ---
RESTING QUIETLY , SUPINE POSITION, VSS, SR, SATS 95% 2LNC, RIGHT GROIN SOFT WITH NO BLEEDING OR OOZING , NO PALPLABLE HEMATOMA, PEDAL PULSE PALPABLE, DENIES PAIN OR NEEDS, IV INFUSING PER ORDERS, CALL LIGHT WITHIN REACH, SPOUSE AT BEDSIDE
--- NOTE | 2021-01-21 14:20 | NUR ---
EYES CLOSED AROUSES EASILY TO VERBAL, VSS, SR , RIGHT GROIN SOFT WITHOUT OOZING OR BLEEDING NO PALPABLE HEMATOMA, PEDAL PULSE PALPABLE, CAP REFILL WNL, IV INFUSING PER ORDERS, CALL LIGHT WITHIN REACH, DENIES PAIN OR NEEDS AT PRESENT
--- NOTE | 2021-01-21 14:35 | NUR ---
RESTING QUIETLY , VSS, SR, RIGHT GROIN SOFT NO OOZING OR BLEEDING , NO PALPABLE HEMATOMA, PEDAL PULSE PALPABLE, EXTREMITY WARM , CAP REFILL WNL, DENIES PAIN OR NEEDS, CALL LIGHT WITH IN REACH
--- NOTE | 2021-01-21 15:00 | NUR ---
VSS, SB , RIGHT GROIN SOFT WITH NO OOZING OR BLEEDING NOTED, NO PALPABLE HEMATOMA, PEDAL PULSE PALABLE, DENIES PAIN, IV INFUSING PER ORDERS , SPOUSE AT BEDSIDE , UPDATE ON TIME GIVEN AND PLAN, CALL LIGHT WITHIN REACH
--- NOTE | 2021-01-21 15:30 | NUR ---
RIGHT GROIN SOFT OPSITE C/D/I, NO OOZING OR BLEEDING , NO PALPABLE HEMATOMA, PEDAL PULSE PALABLE, VSS, SB NO ECTOPY, SPOUSE AT BEDSIDE, IV INFUSING , CALL LIGHT WITH IN REACH
--- NOTE | 2021-01-21 16:00 | NUR ---
PT PLACED IN SEMI FOWLERS POSITION, PT GIVEN URINAL VOIDS 300CC YELLOW URINE, VSS, SB, RIGHT GROIN REMAINS SOFT WITH NO OOZING OR BLEEDING, PEDAL PULSE PALPABLE, DENIES PAIN OR NEEDS, CALL LIGHT WITHIN REACH
--- NOTE | 2021-01-21 16:30 | NUR ---
RIGHT GROIN SOFT WITH NO OOZING OR BLEEDING , OPSITE C/D/I, NO PALPABLE HEMATOMA, PEDAL PULSE PALPABLE, DENIES PAIN OR NEEDS, DISCHARGE TEACHING COMPLETED. CALL LIGHT WITH IN REACH
--- NOTE | 2021-01-21 16:45 | NUR ---
22G IV REMOVED FROM RT AC CATHETER INTACT 2 X 2 DRESSING APPLIED, RIGHT GROIN REMAINS STABLE , OPSITE C/D/I, NO PALPABLE HEMATOMA, PEDAL PULSE PALPABLE, DENIES PAIN OR NEEDS, PT UP TO DRESS ASSISTED BY SPOUSE AMBULATES TO BATHROOM VOIDS WITHOUT DIFFICULTY. PT AND SPOUSE VERBALIZED UNDERSTANDING OF DISCHARGE INSTRUCTIONS.
--- NOTE | 2021-01-21 17:00 | NUR ---
PT DISCHARGED TO HOME, TAKEN TO FAMILY CAR VIA WHEELCHAIR, DENIES NEEDS OR PAIN, PT HAS NO QUESTIONS OR CONCERNS
--- NOTE | 2021-01-22 11:09 | OP ---
PATIENT NAME: ANNIKA LAMAS MEDICAL RECORD: [id number] :47 LOCATION:D.CAT ADMISSION DATE: SURGEON: JOHN BANGURA MD DATE OF OPERATION: 01/21/2021 PROCEDURE: Left heart catheterization, selective coronary angiography plus IFR wire to the right plus IFR wire to the circumflex, plus stent to the circumflex, right femoral artery approach. CATHETERS: A 5-[place] sheath, 5/4 left and right Julee, 5/4 pig. The procedure was well tolerated. The patient returned to the [place]on. Sheath removed. ExoSeal device placed. FINDINGS: Left ventriculography in 30-degree ZAPIEN view; normal wall motion and normal systolic function. CORONARY ANATOMY: LEFT MAIN: Left main is free of disease. LAD: Free of disease. CIRCUMFLEX: Has about 80% stenosis, correlating nicely with nuclear study. RIGHT CORONARY: Has a questionable lesion; however, this is not significant via IFR wire greater than 0.9. TECHNIQUE: The 80% circumflex lesion was crossed via IFR wire. Stent deployed was a 3.5 x 15 mm Avinash drug-eluting stent up to 14 atmospheres. Next, the stent was withdrawn. Final angiography shows excellent resolution of 80% stenosis. No significant residual. This confirmed via IFR wire with a post-intervention. IFR wire of close to 0.1. IMPRESSION AND PLAN: Successful percutaneous transluminal coronary angioplasty stenting to the circumflex, IFR wire to the right circumflex. Sheath close with ExoSeal device. The patient was previously on Plavix. Heparin was used during the case. TRANSINT:[id number] Voice Confirmation ID: [id number] DOCUMENT ID: [id number] JOHN BANGURA MD at 1109 CC: [id number] DICTATION DATE: 01/21/21 1335 BOND TRADER: 01/21/21 1512 [facility] 01/21/[address] [address]
== END 2021-01-21 17:00 | disposition home or self-care (01) ==
LOC: D.CATH 11:19
PROVIDERS: ATTEND Internal Medicine Interventional Cardiology
DX: I25.10 Atherosclerotic heart disease of native coronary artery without angina pectoris (principal); I10 Essential (primary) hypertension; E78.5 Hyperlipidemia, unspecified; E11.9 Type 2 diabetes mellitus without complications; R01.1 Cardiac murmur, unspecified
CPT/HCPCS: 93458; 93571; 93572; C9600